=== PATIENT | female | born 1945 | race Two or more races ===

== ENCOUNTER 2024-10-30 16:19 | Inpatient (IN) | payer MEDICARE, MEDICAID ==
[~2024-10-30] VITALS: Ht 142.2 cm; Wt 49.0 kg
[2024-10-30 17:14] LABS: BASOPHILS # (AUTO) 0.1 K/uL (0.0-0.2); BASOPHILS % (AUTO) 1.1 % (0.0-2.0); EOSINOPHILS # (AUTO) 0.2 K/uL (0.0-0.7); EOSINOPHILS % (AUTO) 3.3 % (0.0-6.0); HEMATOCRIT 34 % (33-45); HEMOGLOBIN 11.6 g/dL (11.5-14.8); LYMPHOCYTES # (AUTO) 1.2 K/uL (0.8-4.8); LYMPHOCYTES % (AUTO) 16.9 % (20.0-44.0); MEAN CORPUSCULAR HEMOGLOBIN 31 PG (26.0-33.0); MEAN CORPUSCULAR HGB CONC 34 g/dl (31.0-36.0); MEAN CORPUSCULAR VOLUME 90 fL (82-100); MONOCYTES # (AUTO) 0.5 K/uL (0.1-1.30); MONOCYTES % (AUTO) 7.1 % (2.0-12.0); NEUTROPHILS # (AUTO) 4.9 K/uL (1.8-8.9); NEUTROPHILS % (AUTO) 71.6 % (43.0-81.0); PLATELET COUNT (AUTO) 201 K/uL (150-450); RED BLOOD CELL COUNT(AUTO) 3.75 MIL/uL (4.0-5.2); RED CELL DISTRIBUTION WIDTH 14.2 % (11.5-15.0); WHITE BLOOD COUNT (AUTO) 6.9 K/uL (4.3-11.0)
[2024-10-30 17:46] LABS: CALCIUM, SERUM 8.9 mg/dL (8.5-10.1); CREATININE 1.8 mg/dL (0.6-1.3); POTASSIUM 4.5 mmol/L (3.5-5.1)
[2024-10-30 17:52] LABS: ALBUMIN 3.7 g/dL (3.4-5.0); BILIRUBIN,DIRECT 0.1 mg/dL (0.0-0.2); BILIRUBIN,TOTAL 0.2 mg/dL (0.2-1.0); TOTAL PROTEIN, SERUM 7.3 g/dL (6.4-8.2)
[2024-10-30] MEDS: IV NS 0.9% 1,000 ML BAG IV ONE (17:56)
[2024-10-30 22:37] VITALS: BP 120/54; TEMP 98.8; O2SAT 97
[2024-10-30 22:45] VITALS: BP 120/54; TEMP 98.8; O2SAT 97
[2024-10-30] MEDS ORDERED: Z GUARD REMEDY 4 OZ OINT TP PRN (23:30)
[2024-10-30] MEDS ORDERED: ACETAMINOPHEN 325 MG TABLET PO PRN (23:30)
[2024-10-30] MEDS ORDERED: ONDANSETRON HCL/PF 4 MG/2 ML VIAL IVP PRN (23:30)
[2024-10-30] MEDS ORDERED: MAGNESIUM HYDROXIDE 30 ML UDC PO PRN (23:30)
[2024-10-31] MEDS: IV 1/2NS 1000 ML 1,000 ML IV PRN (00:31)
[2024-10-31] MEDS: DICYCLOMINE HCL 10 MG CAPSULE PO SCH (00:38)
[2024-10-31] MEDS: METOCLOPRAMIDE HCL 10 MG/2 ML VIAL IV SCH (00:38)
[2024-10-31] MEDS ORDERED: NITROFURANTOIN/MONOHYDRATE MACROCRYSTALS 100 MG CAPSULE ONE (04:29)
[2024-10-31 07:00] VITALS: BP 136/74; TEMP 98.1; O2SAT 97
[2024-10-31] MEDS: PANTOPRAZOLE 40 MG TABLET.DR PO SCH (07:38)
[2024-10-31 07:45] LABS: BASOPHILS # (AUTO) 0.1 K/uL (0.0-0.2); BASOPHILS % (AUTO) 0.9 % (0.0-2.0); EOSINOPHILS # (AUTO) 0.3 K/uL (0.0-0.7); EOSINOPHILS % (AUTO) 4.3 % (0.0-6.0); HEMATOCRIT 29 % (33-45); HEMOGLOBIN 10.1 g/dL (11.5-14.8); LYMPHOCYTES # (AUTO) 1.1 K/uL (0.8-4.8); LYMPHOCYTES % (AUTO) 17.4 % (20.0-44.0); MEAN CORPUSCULAR HEMOGLOBIN 31 PG (26.0-33.0); MEAN CORPUSCULAR HGB CONC 34 g/dl (31.0-36.0); MEAN CORPUSCULAR VOLUME 90 fL (82-100); MONOCYTES # (AUTO) 0.5 K/uL (0.1-1.30); MONOCYTES % (AUTO) 7.7 % (2.0-12.0); NEUTROPHILS # (AUTO) 4.5 K/uL (1.8-8.9); NEUTROPHILS % (AUTO) 69.7 % (43.0-81.0); PLATELET COUNT (AUTO) 168 K/uL (150-450); RED BLOOD CELL COUNT(AUTO) 3.28 MIL/uL (4.0-5.2); RED CELL DISTRIBUTION WIDTH 14.2 % (11.5-15.0); WHITE BLOOD COUNT (AUTO) 6.5 K/uL (4.3-11.0)
[2024-10-31] MEDS ORDERED: [UNRECOGNIZED DRUG - OTHER] PO (08:18)
[2024-10-31] MEDS ORDERED: METO5TAB2 PO (08:18)
[2024-10-31] MEDS ORDERED: CRAN250C PO (08:18)
[2024-10-31] MEDS ORDERED: MAGNESIUM CIT PO (08:18)
[2024-10-31] MEDS ORDERED: PANT40TA49 PO (08:18)
[2024-10-31] MEDS ORDERED: SUCR1ORA6 PO (08:18)
[2024-10-31] MEDS ORDERED: RIFA550T PO (08:18)
[2024-10-31] MEDS ORDERED: SERT50TA12 PO (08:18)
[2024-10-31] MEDS ORDERED: ONDA-97 PO (08:18)
[2024-10-31] MEDS: HEPARIN SODIUM, PORCINE 5000 UNITS/1 ML VIAL SQ SCH (08:28)
[2024-10-31 08:29] LABS: CALCIUM, SERUM 8.7 mg/dL (8.5-10.1); CREATININE 1.5 mg/dL (0.6-1.3); PHOSPHORUS 4.1 mg/dL (2.5-4.9)
[2024-10-31 16:00] VITALS: BP 124/59; TEMP 98.6; O2SAT 96
[2024-10-31 20:00] VITALS: BP 108/45; TEMP 98.3; O2SAT 96
[2024-11-01 06:31] LABS: BASOPHILS % (AUTO) 0.9 % (0.0-2.0); EOSINOPHILS # (AUTO) 0.3 K/uL (0.0-0.7); EOSINOPHILS % (AUTO) 5.4 % (0.0-6.0); HEMATOCRIT 33 % (33-45); HEMOGLOBIN 11.4 g/dL (11.5-14.8); LYMPHOCYTES # (AUTO) 0.9 K/uL (0.8-4.8); LYMPHOCYTES % (AUTO) 16.5 % (20.0-44.0); MEAN CORPUSCULAR HEMOGLOBIN 31 PG (26.0-33.0); MEAN CORPUSCULAR HGB CONC 35 g/dl (31.0-36.0); MEAN CORPUSCULAR VOLUME 90 fL (82-100); MONOCYTES # (AUTO) 0.4 K/uL (0.1-1.30); MONOCYTES % (AUTO) 7.2 % (2.0-12.0); NEUTROPHILS # (AUTO) 3.8 K/uL (1.8-8.9); PLATELET COUNT (AUTO) 178 K/uL (150-450); RED BLOOD CELL COUNT(AUTO) 3.65 MIL/uL (4.0-5.2); RED CELL DISTRIBUTION WIDTH 14.6 % (11.5-15.0); WHITE BLOOD COUNT (AUTO) 5.4 K/uL (4.3-11.0)
[2024-11-01 06:55] LABS: ALBUMIN 3.2 g/dL (3.4-5.0); BILIRUBIN,TOTAL 0.3 mg/dL (0.2-1.0); CALCIUM, SERUM 8.7 mg/dL (8.5-10.1); CREATININE 1.8 mg/dL (0.6-1.3); MAGNESIUM 1.9 mg/dL (1.8-2.4); POTASSIUM 4.6 mmol/L (3.5-5.1); TOTAL PROTEIN, SERUM 6.4 g/dL (6.4-8.2)
[2024-11-01 08:00] VITALS: BP 123/65; TEMP 97.9; O2SAT 99
[2024-11-01 16:00] VITALS: BP 109/58; TEMP 98.2; O2SAT 97
[2024-11-01 20:00] VITALS: BP 100/80; TEMP 98.1; O2SAT 97
[2024-11-02 08:00] VITALS: BP 133/53; TEMP 98.1; O2SAT 98
[2024-11-02 15:24] LABS: CREATININE 1.7 mg/dL (0.6-1.3); POTASSIUM 4.4 mmol/L (3.5-5.1)
[2024-11-02 15:33] LABS: CALCIUM, SERUM 8.8 mg/dL (8.5-10.1)
[2024-11-02 16:00] VITALS: BP 120/70; TEMP 98.6; O2SAT 97
[2024-11-03 13:11] LABS: PTH, INTACT 50 pg/mL (15-65)
[2024-11-04 05:06] LABS: *SPE ALBUMIN 3.1 g/dL (2.9-4.4); *SPE ALPHA-1-GLOBULIN 0.2 g/dL (0.0-0.4); *SPE ALPHA-2-GLOBULIN 0.6 g/dL (0.4-1.0); *SPE BETA GLOBULIN 1.1 g/dL (0.7-1.3); *SPE M-SPIKE Not Observed g/dL (Not Observed); *SPE PROTEIN TOTAL 6.1 g/dL (6.0-8.5); *SPEGAMMA GLOBULIN 1.1 g/dL (0.4-1.8)
== END 2024-11-02 18:16 | DRG 392 ==
LOC: ER 16:31 → MED 22:12
PROVIDERS: ADMIT Nurse Practitioner Family; ATTEND Nurse Practitioner Acute Care
DX: K31.84 Gastroparesis (principal); N17.9 Acute kidney failure, unspecified; K58.9 Irritable bowel syndrome, unspecified; K59.00 Constipation, unspecified; E86.0 Dehydration; R62.7 Adult failure to thrive; D64.9 Anemia, unspecified; G89.29 Other chronic pain; K57.30 Diverticulosis of large intestine without perforation or abscess without bleeding; D17.71 Benign lipomatous neoplasm of kidney; R53.1 Weakness; I50.9 Heart failure, unspecified; E83.9 Disorder of mineral metabolism, unspecified; N18.9 Chronic kidney disease, unspecified; N20.0 Calculus of kidney; N28.1 Cyst of kidney, acquired; Z68.24 Body mass index [BMI] 24.0-24.9, adult
CPT/HCPCS: 36415; 76770-TC; 80048-TC; 80053-TC; 80076-TC; 82550-TC; 83690-TC; 83735-TC; 83970; 84100-TC; 84155; 84165; 85025-TC; 97110-TC; 97116-TC; 97530-TC; A4223; G0378; J1644; J2765; J3490